=== PATIENT | female | born 1955 | race Caucasian/White ===

== ENCOUNTER 2025-01-08 10:00 | Outpatient (CLI) | payer MEDICARE, BC, SELFPAY | END 2025-01-08 10:01 | disposition home or self-care (01) | PROVIDERS: PCP Physician Assistant; Visit Provider Family Medicine | DX: Z01.818 Encounter for other preprocedural examination (principal); Z86.718 Personal history of other venous thrombosis and embolism; Z13.79 Encounter for other screening for genetic and chromosomal anomalies | CPT/HCPCS: 81240; 81241; 83090; 85300; 85302; 85303; 85306; 85384; 86146; 86147 ==

== ENCOUNTER 2025-01-20 08:31 | Day surgery (SDC) | payer MEDICARE, BC, SELFPAY ==
[2025-01-20 08:47] VITALS: BMI 29.6
[2025-01-20] MEDS: LACTATED RINGERS 1000 ML 1,000 ML 100 ML IV (08:54)
[2025-01-20] MEDS: SODIUM CHLORIDE 0.9 % (FLUSH) 10 ML SYRINGE IVF (08:54)
[2025-01-20 09:14] VITALS: BP 146/79; PULSE 67; RESP 16; TEMP 36.8; O2SAT 96
[2025-01-20] MEDS: BUPIVACAINE 0.25% 30 ML INJECTION (10:20)
[2025-01-20 12:23] VITALS: BP 136/85; PULSE 65; RESP 16; TEMP 36; O2SAT 96
[2025-01-20 12:30] VITALS: BP 141/72; PULSE 66; RESP 16; O2SAT 96
--- NOTE | 2025-01-20 12:31 | P.ANES_ITS ---
Anesthesia Charges Start Date/Time Anesthesia Start Date: 01/20/25 Anesthesia Start Time: 10:03 Stop Date/Time Anesthesia Stop Date: 01/20/25 Anesthesia Stop Time: 12:26 Coding CPT Codes CPT Codes: ANESTH LOWER LEG BONE SURG - 53765 ([id number]) P2 - PATIENT W/MILD SYST DISEASE, QK - PARTY PLAN SELLING DISTRIBUTOR 2-4 CNCRNT ANES PROC, QX - TENSILE TESTER SVC W/ MD MED DIRECTION
--- NOTE | 2025-01-20 12:31 | W.ANESCHARGE ---
Anesthesia Charges Start Date/Time Anesthesia Start Date: 01/20/25 Anesthesia Start Time: 10:03 Stop Date/Time Anesthesia Stop Date: 01/20/25 Anesthesia Stop Time: 12:26 Coding CPT Codes CPT Codes: ANESTH LOWER LEG BONE SURG - 59649 ([id number]) P2 - PATIENT W/MILD SYST DISEASE, QK - MAINTENANCE CRAFTSMAN 2-4 CNCRNT ANES PROC, QX - PROGRAM DEVELOPMENT MANAGER SVC W/ MD MED DIRECTION
--- NOTE | 2025-01-20 12:32 | P.ANES_ITS ---
Anesthesia Charges Start Date/Time Anesthesia Start Date: 01/20/25 Anesthesia Start Time: 10:03 Stop Date/Time Anesthesia Stop Date: 01/20/25 Anesthesia Stop Time: 12:26 Coding CPT Codes CPT Codes: ANESTH LOWER LEG BONE SURG - 39039 ([id number]) P2 - PATIENT W/MILD SYST DISEASE, QK - SCARFER OPERATOR 2-4 CNCRNT ANES PROC, QX - HEALTH RESEARCHER SVC W/ MD MED DIRECTION
--- NOTE | 2025-01-20 12:32 | W.ANESCHARGE ---
Anesthesia Charges Start Date/Time Anesthesia Start Date: 01/20/25 Anesthesia Start Time: 10:03 Stop Date/Time Anesthesia Stop Date: 01/20/25 Anesthesia Stop Time: 12:26 Coding CPT Codes CPT Codes: ANESTH LOWER LEG BONE SURG - 79859 ([id number]) P2 - PATIENT W/MILD SYST DISEASE, QK - CHIEF SUPPLY CHAIN OFFICER 2-4 CNCRNT ANES PROC, QX - GASTROENTEROLOGY NURSE SVC W/ MD MED DIRECTION
--- NOTE | 2025-01-20 12:42 | SUR.OPER ---
Touriquet was applied but not inflated
[2025-01-20 12:45] VITALS: BP 139/72; PULSE 65; RESP 16; O2SAT 96
[2025-01-20 13:00] VITALS: BP 140/72; PULSE 52; RESP 16; O2SAT 96
[2025-01-20] MEDS: HYDROCODONE-ACETAMIN 5-325 MG 1 TAB PO (13:40)
--- NOTE | 2025-01-21 05:59 | W.PM.PODPROC ---
Date of Procedure: 01/20/25 Time Seen by Provider: 07:00 Surgeon: Ivanna Solomon DPM Co-Surgeon: Kolby Castellon DPM Pre-op Diagnosis: 1. Left foot bunion 2. Left foot pain Post-op Diagnosis: 1. Left foot bunion 2. Left foot pain Type of Procedure: 1. Minimally invasive bunionectomy, left foot Procedure Description: Attention was drawn to the first ray of the operative foot where a small medial incision was made over the distal first metatarsal just proximal to the sesamoid complex at the metatarsal neck as confirmed by fluoroscopy. Next, the soft tissue were carefully freed at the planned osteotomy site using a periosteal elevator. Using the Arthrex Minimally Invasive Bunionectomy System, a transverse distal metatarsal osteotomy was created using a high-speed georgina at the metatarsal neck under fluoroscopic guidance. The metatarsal head was then translated laterally to correct the intermetatarsal angle deformity. Utilizing the trajectory and targeting guides, an additional proximal medial incision was made overlying the 1st tarsometatarsal joint to allow for placement of screw fixation. Under fluoroscopic guidance, two fully threaded, headless Arthrex Compression cannulated screws were inserted across the osteotomy site to achieve compression and stabilization. Intraoperative fluoroscopy confirmed good alignment, stable fixation, and appropriate correction of the deformity. Lastly, under fluoroscopic guidance, the high-speed georgina was re-inserted into the initial medial incision and used to shave down the medial prominence and step-off of the 1st metatarsal shaft. All incisions were irrigated with copious amounts of sterile saline. The subcutaneous tissue was approximated with 3-0 Vicryl, and the skin was closed with 4-0 nylon sutures.? A well-padded Osmel Brennan type dressing was then applied to the operative lower extremity from the base of the toes to ankle. Anesthesia: MAC and local Hemostasis: other (none) Estimated blood loss (mL): 50 Provider Operated C-arm: C-arm fluoroscopy operated by myself for surgery. 3 C-arm spot images were obtained. Implants: Arthrex 2x 3.5mm screws Specimens: none sent Disposition: same day
== END 2025-01-20 13:55 | disposition home or self-care (01) ==
LOC: OR 08:32
PROVIDERS: PCP Physician Assistant; Visit Provider Podiatrist
PROC: (CPT 28292; principal; 2025-01-20 10:00)
DX: M21.612 Bunion of left foot (principal); M79.672 Pain in left foot
CPT/HCPCS: 28306; 01480; 73630; 76000; A9270; C1713; C1769; J0665; J0690; J1100; J2405; J2704; J3010; J7120